=== PATIENT | female | born 1995 | race Caucasian/White ===

== ENCOUNTER 2019-04-09 06:51 | Emergency (ER) | payer SELFPAY ==
[~2019-04-09] VITALS: Ht 162.6 cm; Wt 72.7 kg
[2019-04-09] MEDS ORDERED: SYNTHROID0.112 MG/T PO (06:56)
[2019-04-09 07:20] LABS: COLLECTION METHOD CLEAN CATCH
[2019-04-09 07:37] LABS: MUCOUS Present /lpf; PH 5 (5-8); SQUAMOUS EPITHELIAL 0-2 /hpf; URINE APPEARANCE Clear; URINE BACTERIA None Seen /hpf; URINE BILIRUBIN Negative (NEGATIVE); URINE BLOOD Negative (NEGATIVE); URINE COLOR Yellow; URINE GLUCOSE Negative (NEGATIVE); URINE KETONE Negative (NEGATIVE); URINE LEUKOCYTE ESTERASE Negative (NEGATIVE); URINE NITRATE Negative (NEGATIVE); URINE PROTEIN(semi-quant) Negative (NEGATIVE); URINE RBC 0-2 /hpf; URINE UROBILINOGEN Negative (NEGATIVE)
[2019-04-09 08:19] VITALS: BP 109/74; PULSE 68; TEMP 98.1
== END 2019-04-09 08:24 | disposition home or self-care (01) ==
LOC: COL.ER 06:51
PROVIDERS: Emergency Medicine
DX: S39.012A Strain of muscle, fascia and tendon of lower back, initial encounter (principal); V49.9XXA Car occupant (driver) (passenger) injured in unspecified traffic accident, initial encounter

== ENCOUNTER → 2020-07-31 | Outpatient (CLI) | payer BC ==
[~2020-07-31] MED LIST: SYNTHROID0.112 MG/T PO
== END ==
LOC: DIA.ED
DX: E10.9 Type 1 diabetes mellitus without complications (principal); E78.5 Hyperlipidemia, unspecified; E03.9 Hypothyroidism, unspecified
CPT/HCPCS: G0108

== ENCOUNTER → 2020-08-15 | Outpatient (CLI) | payer BC | LOC: DIA.ED 08:25 | DX: E10.9 Type 1 diabetes mellitus without complications (principal); E78.5 Hyperlipidemia, unspecified; E03.9 Hypothyroidism, unspecified | CPT/HCPCS: G0108 ==

== ENCOUNTER 2020-10-01 07:40 | Emergency (ER) | payer BC ==
[~2020-10-01] VITALS: Ht 160 cm; Wt 62.7 kg
[2020-10-01 08:49] VITALS: BP 117/79; PULSE 82; TEMP 98.2
== END 2020-10-01 08:49 | disposition home or self-care (01) ==
LOC: COL.ER 07:40
DX: S50.02XA Contusion of left elbow, initial encounter (principal); E07.9 Disorder of thyroid, unspecified; E11.9 Type 2 diabetes mellitus without complications; Z88.2 Allergy status to sulfonamides; Z79.890 Hormone replacement therapy; W19.XXXA Unspecified fall, initial encounter